=== PATIENT | female | born 1960 | race Hispanic/Latino ===

== ENCOUNTER 2019-05-13 13:45 | Emergency (ER) | payer MEDICAID ==
[2019-05-13] MEDS ORDERED: levETIRAcetam 1000 MG/NS 0.75% 1,000 MG/100 ML BAG IV ONE (14:56)
--- NOTE | 2019-05-13 15:01 | Emergency Department Report ---
ED General Adult HPI - General Chief complaint: Psych Stated complaint: NOSE RING STUCK IN NOSE Time Seen by Provider: 05/13/19 14:48 Source: patient Mode of arrival: Ambulatory Limitations: No Limitations - History of Present Illness Initial comments: Patient is 58 years old female with history of CVA and left hemiparesis residual, bipolar disorder and seizure. Patient brought to the emergency room accompanied by her son and her [id number] for removal of right nose ring. Patient family stated that she received any use that her twin sister committed suicide yesterday and out of anger she tried to pull her nose ring. While patient in triage, patient had a generalized tonic-clonic seizure. Patient now is alert, oriented 3 in no acute distress. Patient stated that she is compliant with her Keppra. Patient also denied any suicidal thoughts, homicidal thoughts, visual or auditory hallucination. Patient family really concern about her mental health. Patient is tearful. I offered mental health evaluation and patient accepted. Mental health evaluation requested. - Related Data Allergies Allergy/AdvReac Type Severity Reaction Status Date / Time aspirin Allergy Unknown Verified 05/13/19 13:58 ED Review of Systems ROS: Stated complaint: NOSE RING STUCK IN NOSE Other details as noted in HPI Comment: All other systems reviewed and negative Constitutional: denies: chills, fever Respiratory: denies: cough, shortness of breath, SOB with exertion, wheezing Cardiovascular: denies: chest pain Gastrointestinal: denies: abdominal pain, nausea Musculoskeletal: denies: back pain Neurological: denies: headache, weakness, numbness, paresthesias, confusion, abnormal gait ED Past Medical Hx - Past Medical History Hx Hypertension: Yes Hx CVA: Yes (L side afftected) Hx Liver Disease: Yes (hep C) Hx Seizures: Yes (on keppra) Hx Psychiatric Treatment: Yes (bipolar/ anxiety/ depression) - Surgical History Additional Surgical History: open heart surgery - Social History Smoking Status: Never Smoker Substance Use Type: None ED Physical Exam - General Limitations: No Limitations General appearance: alert, in no apparent distress - Head Head exam: Present: atraumatic, normocephalic, normal inspection - Eye Eye exam: Present: normal appearance, PERRL - ENT ENT exam: Present: normal exam, normal orophraynx, mucous membranes moist, other (nose ring to the right Nostril) - Neck Neck exam: Present: normal inspection, full ROM. Absent: tenderness, meningis mus, lymphadenopathy, thyromegaly - Respiratory Respiratory exam: Present: normal lung sounds bilaterally - Cardiovascular Cardiovascular Exam: Present: regular rate, normal rhythm, normal heart sounds - GI/Abdominal GI/Abdominal exam: Present: soft, normal bowel sounds. Absent: distended, tenderness, guarding, rebound, rigid, organomegaly, mass, bruit, pulsatile mass, hernia - Extremities Exam Extremities exam: Present: normal inspection, full ROM, normal capillary refill. Absent: pedal edema, calf tenderness - Back Exam Back exam: Present: normal inspection, full ROM. Absent: CVA tenderness (R), CVA tenderness (L) - Neurological Exam Neurological exam: Present: alert, oriented X3, CN II-XII intact, motor sensory deficit (chronic left upper and lower extremity weakness.) - Psychiatric Psychiatric exam: Present: normal mood. Absent: depressed, agitated, anxious, flat affect, manic, homicidal ideation, suicidal ideation - Skin Skin exam: Present: warm, intact, normal color ED Course Vital Signs 05/13/19 05/13/19 05/13/19 14:01 14:06 14:30 Temperature 98.1 F Pulse Rate 94 H 116 H 83 Respiratory 18 22 9 L Rate Blood Pressure 114/83 117/83 O2 Sat by Pulse 95 96 96 Oximetry 05/13/19 05/13/19 05/13/19 14:32 15:00 16:00 Temperature Pulse Rate 78 74 Respiratory 16 12 11 L Rate Blood Pressure 112/79 128/83 O2 Sat by Pulse 93 99 Oximetry 05/13/19 17:00 Temperature Pulse Rate 78 Respiratory 20 Rate Blood Pressure 143/82 O2 Sat by Pulse 97 Oximetry - Procedure Description Procedures done: Under aseptic condition, using a forceps nose ring pulled out easily, no bleeding or other complication., ED Medical Decision Making - Lab Data Result diagrams: 05/13/19 15:47 05/13/19 17:08 - Medical Decision Making Patient is 58 years old female with history of CVA and left hemiparesis residual, bipolar disorder and seizure. Patient brought to the emergency room accompanied by her son and her [id number] for removal of right nose ring. Patient family stated that she received any use that her twin sister committed suicide yesterday and out of anger she tried to pull her nose ring. While patient in triage, patient had a generalized tonic-clonic seizure. Patient now is alert, oriented 3 in no acute distress. Patient stated that she is compliant with her Keppra. Patient also denied any suicidal thoughts, homicidal thoughts, visual or auditory hallucination. Patient family really concern about her mental health. Patient is tearful. I offered mental health evaluation and patient accepted. Mental health evaluation requested. Patient labs reviewed and is unremarkable. Patient received Keppra 1 g IV and Ativan 1 mg IV. No seizure activity observed in the ER. Patient does drink removed by me. Patient has been assessed by our psychiatric team and advised that patient can be discharged to follow-up with her psychiatric as an outpatient. Patient will be discharged home and her son stated that he will stay with her. Critical care attestation.: If time is entered above; I have spent that time in minutes in the direct care of this critically ill patient, excluding procedure time. ED Disposition Clinical Impression: Foreign body in nostril, Seizure, Depression Disposition: DC-01 TO HOME OR SELFCARE Is pt being admited?: No Condition: Stable Instructions: Recurrent Seizures Adult (ED), Depression (ED) Referrals: TONIA WHITE [Other] - 3-5 Days
[2019-05-13] MEDS ORDERED: LORazepam 2 MG/ML VIAL IV ONE (15:15)
[2019-05-13] MEDS ORDERED: SODIUM CHLORIDE 0.9% 1000 ML 1,000 ML IV ONE (15:15)
[2019-05-13] MEDS ORDERED: LORazepam 2 MG/ML VIAL ONE (15:18)
[2019-05-13] MEDS ORDERED: SODIUM CHLORIDE 0.9% 1000 ML 1,000 ML ONE (15:18)
[2019-05-13 16:33] LABS: Eosinophils # (Auto) 0.2 K/mm3 (0.0-0.4); Eosinophils % (Auto) 3.4 % (0.0-4.3); Monocytes # (Auto) 0.5 K/mm3 (0.0-0.8); Monocytes % (Auto) 9.2 % (0.0-7.3)
[2019-05-13 16:42] LABS: Basophils % (Auto) 0.9 % (0.0-1.8); Hematocrit 37.7 % (30.3-42.9); Hemoglobin 12.8 gm/dl (10.1-14.3); Mean Corpuscular HGB Conc 34 % (30-34); Mean Corpuscular Volume 91 fl (79-97); Platelet Count 150 K/mm3 (140-440); Red Blood Count 4.16 M/mm3 (3.65-5.03); Red Cell Distribution Width 13.6 % (13.2-15.2)
[2019-05-13 16:43] LABS: Lymphocytes # (Auto) 1.2 K/mm3 (1.2-5.4)
[2019-05-13 17:07] LABS: Bilirubin,Urine NEG (Negative); Blood,Urine NEG (Negative); Color,Urine Yellow (Yellow); Mucus,Urine FEW /HPF; Protein,Urine <15 mg/dL mg/dL (Negative); Urobilinogen,Urine < 2.0 mg/dL (<2.0)
[2019-05-13 17:12] VITALS: BP 143/82
[2019-05-13 17:22] LABS: Amphetamine Screen,Urine PRESUMPTIVE NEGATIVE; Benzodiazepines Screen,Urine PRESUMPTIVE NEGATIVE; Cannabinoid Screen,Urine PRESUMPTIVE NEGATIVE; Cocaine Screen,Urine PRESUMPTIVE NEGATIVE; Methadone Screen,Urine PRESUMPTIVE NEGATIVE; Opiate Screen,Urine PRESUMPTIVE NEGATIVE
[2019-05-13 18:13] LABS: Calcium 9.2 mg/dL (8.4-10.2)
[2019-05-13 18:46] LABS: BUN/Creatinine Ratio 25; Blood Urea Nitrogen 15 mg/dL (7-17)
== END 2019-05-13 20:23 | disposition home or self-care (01) ==
LOC: ED 13:45
DX: T17.1XXA Foreign body in nostril, initial encounter (principal); R56.9 Unspecified convulsions; I10 Essential (primary) hypertension; F31.9 Bipolar disorder, unspecified; F41.9 Anxiety disorder, unspecified; Z86.19 Personal history of other infectious and parasitic diseases; Z86.73 Personal history of transient ischemic attack (TIA), and cerebral infarction without residual deficits; Z98.890 Other specified postprocedural states; Z88.6 Allergy status to analgesic agent; X58.XXXA Exposure to other specified factors, initial encounter; Y93.89 Activity, other specified; Y92.89 Other specified places as the place of occurrence of the external cause; Y99.8 Other external cause status
CPT/HCPCS: 36415; 80048; 80307; 81001; 85025; 96365; 96375; 99284; J1953; J2060; J7030; 80320; G0480